=== PATIENT | female | born 1960 | race Caucasian/White ===

== ENCOUNTER 2017-02-12 12:00 | Day surgery (SDC) | payer OTHER ==
[~2017-02-12] VITALS: Ht 154.9 cm; Wt 75.0 kg
--- NOTE | 2017-02-12 07:27 | PCM.HPANE ---
Patient Data Surgeon Admitting Provider: Attending Provider:Sam Chowdary MD Primary Care Physician:Bogdan Other Provider:Carson Arredondo Anesthesia Reason for Visit Colon Screening, Gerd Ht/WT & BMI Body Mass Index Allergies Coded Allergies: Adhesives (Verified Allergy, Intermediate, RED/RASH, 03/10/07) Uncoded Allergies: DEMORAL (Adverse Reaction, Severe, hallucinations, 02/12/17) Diabetes History Hx Diabetes?: No Medications Hypertension Medication: No Home Meds Incl Beta Marko: No Reported Medications Estradiol (Vagifem)10 Mcg Umtutb17 Mcg VG 02/12/17 Nortriptyline 75 Mg Pqgihhb832 Mg PO HS 02/12/17 Fluticasone Propionate (Flonase Allergy Relief)50 Mcg/Actuation [place].susp9.9 Ml NS HS 02/12/17 Loratadine (Claritin)10 Mg Capsule5 Mg PO DAILY PRN For Congestion Ref 0 02/12/17 Cyclobenzaprine 10 Mg Gxtxlb29 Mg PO HS PRN Spasm Ref 0 02/12/17 Alprazolam 0.25 Mg Tablet0.25 Mg PO TID PRN For Anxiety Ref 0 02/12/[address] (Prevacid)30 Mg Capsule.dr60 Mg PO BID Ref 0 10/26/14 Discontinued Reported Medications Lactobacillus Acidophilus (Acidophilus)1 Each Capsule1 Each PO BID 10/26/14 [Glucosamine/Chonliq] No Conflict Check Po Bid 10/26/14 Methylcellulose (Citrucel)500 Mg Aplzaj823 Mg PO QID 10/26/14 Polyethylene Glycol 3350 (Miralax)17 Gm Powd.pack17 Gm PO TID 10/26/14 Fluticasone Propionate (Flonase Nasal)16 Gm [place].susp2 Sprays NS HS Ref 0 10/26/14 Ubidecarenone (Coq-10)100 Mg Zyamaum330 Mg PO DAILY 10/26/14 Lysine HCl (l-Lysine)500 Mg Tablet1,000 Mg PO DAILY 10/26/14 Estradiol (Vagifem)10 Mcg Tablet5 Mcg VG 3XW 10/26/14 [Mvi] No Conflict Check1 Tab PO DAILY 10/26/14 Calcium Carbonate/Vitamin D3 (Caltrate 600 + D Tablet)1 Each Tablet2 Each PO BID 10/26/14 Cyclobenzaprine 10 Mg Dyrjha23 Mg PO HS PRN For Pain Ref 0 10/26/14 Alprazolam 0.25 Mg Tablet0.25 Mg PO HS PRN For Anxiety 30 Days Ref 0 10/26/14 Nortriptyline 25 Mg Vkhsuxi482 Mg PO HS 30 Days 10/26/14 History Hx of Heart Problems?: No Hx of Respiratory Problem?: No Other History/Comments chronic back and neck pain Stop/Bang Risk Assessment Category Category 1A: Patient has history of documented sleep apnea, and HAS NOT received any narcotic, sedative or anesthesia administration during this stay. Category 1B: Patient has history of documented sleep apnea, and HAS received any narcotic , sedative or anesthesia administration during this stay Category 2: Patient has SUSPECTED Obstructive Sleep Apnea, and HAS received any narcotic , sedative or anesthesia administration during this stay. Category 3: Patient has SUSPECTED Obstructive Sleep Apnea and HAS NOT received narcotic, sedative or anesthesia administration during this stay. Category 4: Outpatient in Procedural Areas with known sleep apnea or who screen positive for High Risk via the STOP/BANG questionnaire. Exam Exam General Appearance: Alert, Oriented X3, Cooperative, No Acute Distress HEENT/AIRWAY: MP 1 Lungs: Normal Air Movement Heart: Exam Unremarkable Plan Impression Patient chart reviewed, patient interviewed and anesthestic plan with risks, benefits, and alternatives discussed, and informed consent obtained. ASA Physical Status: ASA2 Mod Systemic Disease Anesthetic Plan: MAC Bene/Risks/Altern/Consents: Yes HP Complete Prior to Induction: Yes Walter Conn MD Feb 12, 2017 07:27
[~2017-02-12 12:00] MED LIST: LANS30CA14 PO; Lactated Ringer's 1,000 ML IV ONE
[2017-02-12] MEDS ORDERED: Propofol 10,000 mCg/mL 20 mL Inj ONE (12:01)
[2017-02-12] MEDS ORDERED: fentaNYL-PF 50 mCg/mL 2 mL Inj ONE (12:01)
[2017-02-12 12:15] VITALS: BP 151/98; PULSE 90; RESP 14; O2SAT 100
[2017-02-12] MEDS ORDERED: NORT75CA PO (12:22)
[2017-02-12] MEDS ORDERED: ESTR10TA VG (12:22)
[2017-02-12] MEDS ORDERED: ALPR0.254 PO (12:22)
[2017-02-12] MEDS ORDERED: FLUT9.9S NS (12:22)
[2017-02-12] MEDS ORDERED: LORA10CA PO (12:22)
[2017-02-12] MEDS ORDERED: CYCL10TA9 PO (12:22)
[2017-02-12 13:03] VITALS: BP 110/79; PULSE 83; RESP 15; O2SAT 97
--- NOTE | 2017-02-12 13:06 | PCM.ANEP1 ---
Post Anesthesia Phase 1 PACU Phase 1 Assessment Vital Signs Vital Signs Date Time Temp Pulse Resp B/P Pulse Ox O2 Delivery O2 Flow Rate FiO2 02/12/17 12:15 37.1 90 14 151/98 100 Room Air Anesthetic Administered: MAC Level of Alertness: Awake, talking DYKES's with Equal Strength: Yes Pain: No Nausea or Vomiting: No Oxygen Delivery: Room Air Lungs: Normal Air Movement Dermatome Level: Full Sensation Walter Conn MD Feb 12, 2017 13:06
--- NOTE | 2017-02-12 13:06 | PCM.ANEP2 ---
Post Anesthesia Evaluation ASA/CMS Post Anesthesia VS in Patient's Normal Range?: Yes Resp Stable; Airway Patent?: Yes CV Function & Hydration Stable: Yes Mental Status Recovered?: Yes Pain control Satisfactory?: Yes N/V Control Satisfactory?: Yes Walter Conn MD Feb 12, 2017 13:06
[2017-02-12 13:13] VITALS: BP 116/80; PULSE 88; RESP 15; O2SAT 96
[2017-02-12 13:23] VITALS: BP 134/87; PULSE 89; RESP 15; O2SAT 98
--- NOTE | 2017-02-12 14:15 | ENDO ---
[address] [address] ENDOSCOPY PROCEDURE PATIENT: SADIE RIVAS : 1960 MR#: [id number] ADMIT: 02/12/2017 JOB ID: [id number] TYPE OF OPERATION: Esophagogastroduodenoscopy, biopsy, colonoscopy. PREOPERATIVE DIAGNOSIS: Gastroesophageal reflux disease, colorectal cancer screening. POSTOPERATIVE DIAGNOSIS(ES): 1. Mild distal esophagitis. 2. Small internal hemorrhoids. ANESTHESIA: Monitored anesthesia care. COMPLICATIONS: None. BLOOD LOSS: Minimal. DESCRIPTION OF PROCEDURE: After risks and benefits explained to patient, informed consent was obtained. After anesthesia administered, upper endoscope was inserted in the mouth and intubated into the esophagus, stomach, second portion of duodenum, and mucosa examined. After procedure done, the scope withdrawn, procedure terminated. A colonoscope was inserted from the rectum to cecum. Mucosa carefully examined. Prep of the patient was good. After procedure done, the scope withdrawn, procedure terminated. FINDINGS: Upon inspection of the esophagus, there was mild distal esophagitis that was noted. Z-line located at 30 cm from the incisors. Upon entering stomach, there were no masses, ulcers, or lesions seen. Retroflexion was normal. Duodenal bulb, 1st and second portion were normal. Biopsied antrum and body of the stomach and distal esophagus. Upon inspection of the anus, no masses, hemorrhoids, ulcers, fissures that were seen. Throughout the entire examination, there was mild sigmoid diverticulosis that was seen. No polyps or masses were seen. Retroflexion showed small internal hemorrhoids. IMPRESSIONS: 1. Mild distal esophagitis. 2. Mild sigmoid diverticulosis. 3. Small internal hemorrhoids. RECOMMENDATIONS: High-fiber diet. Await pathology results. Repeat colonoscopy in 10 years for colorectal cancer screening.
--- NOTE | 2017-02-14 08:50 | PATH ---
SURGICAL PATHOLOGY Attending Physician:Sam Chowdary MD CASE STATUS: Signed Out PATIENT NAME: SADIE RIVAS PID: [id number] : 1960 DATE COLLECTED:02/12/2017 20:06 SPECIMEN: 1: Gastric, Biopsy 2: Gastric, Biopsy 3: Esophagus, Biopsy 4: Stomach, Polyp, Biopsy CLINICAL HISTORY: 1). GASTRIC ANTRUM 2). GASTRIC BODY 3). DISTAL ESOPHAGUS 4). GASTRIC POLYP FINAL DIAGNOSIS: 1. Gastric Antrum, Biopsy: Normal gastric antrum. Negative for Helicobacter organisms. Negative for intestinal metaplasia. No evidence of malignancy or dysplasia. 2. Gastric Body, Biopsy: Normal gastric corpus. Negative for Helicobacter organisms. Negative for intestinal metaplasia. No evidence of malignancy or dysplasia. 3. Esophagus, Biopsy: Esophageal squamous epithelium with mild chronic active esophagitis. Negative for eosinophilic esophagitis. Negative for intestinal metaplasia. No evidence of malignancy or dysplasia. 4. Gastric Polyp: Fundic gland polyp. No evidence of malignancy or dysplasia. Negative for intestinal metaplasia. ICD10 D13.1 GROSS DESCRIPTION: The specimen is received in four formalin filled containers labeled with the patient's name. 1). The specimen is sublabeled "gastric antrum" and consists of 2 portions of tissue which aggregate to 0.4 x 0.4 x 0.3 CM. The specimen is entirely submitted in cassette 1A. 2). The specimen is sublabeled "gastric body" and consists of 2 portions of tissue which aggregate to 4 x 0.4 x 0.3 CM. The specimen is entirely submitted in cassette 2A. 3). The specimen is sublabeled "distal esophagus" and consists of 2 portions of tissue which aggregate to 0.3 x 0.3 x 0.2 CM. The specimen is entirely submitted in cassette 3A. 4). The specimen is sublabeled "gastric polyp" and consists of a 0.3 x 0.2 x 0.2 CM portion of tissue which is entirely submitted in cassette 4A. 02/12/2017 [facility] ICD-9 CODES: CPT CODES: 1: 47540 2: 42630 3: 00588 4: 19020 Electronically Signed Out Lonnie Rizo MD [facility] Pathology [facility] [address] [place] [id number] Technical component performed at [facility], [address], [place], [address]
== END 2017-02-12 23:59 | disposition home or self-care (01) ==
LOC: END 12:00
PROVIDERS: ATTEND Internal Medicine Gastroenterology
DX: Z12.11 Encounter for screening for malignant neoplasm of colon (principal); K64.8 Other hemorrhoids; K31.7 Polyp of stomach and duodenum; K20.9 Esophagitis, unspecified; K21.9 Gastro-esophageal reflux disease without esophagitis; F32.9 Major depressive disorder, single episode, unspecified; K44.9 Diaphragmatic hernia without obstruction or gangrene; Z85.3 Personal history of malignant neoplasm of breast; Z92.3 Personal history of irradiation; Z92.21 Personal history of antineoplastic chemotherapy; Z85.72 Personal history of non-Hodgkin lymphomas; Z79.891 Long term (current) use of opiate analgesic
CPT/HCPCS: 43239; G0121; J2250; J3010; J7120